=== PATIENT | male | born 2005 | race Caucasian/White ===

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

== ENCOUNTER 2024-02-04 02:52 | Emergency (ER) | payer SELFPAY | END 2024-02-04 03:16 | disposition home or self-care (01) | LOC: MADERS 02:52 | DX: T16.2XXA Foreign body in left ear, initial encounter (principal); H60.92 Unspecified otitis externa, left ear; F17.290 Nicotine dependence, other tobacco product, uncomplicated | CPT/HCPCS: 99282 ==